=== PATIENT | female | born 1980 | race Caucasian/White ===

== ENCOUNTER 2023-06-22 08:03 | Outpatient (CLI) | payer BC, MEDICAID, SELFPAY ==
--- NOTE | 2023-06-22 08:11 | US_ITS ---
WS: [id number] Complete ABDOMINAL ULTRASOUND HISTORY: HERNIA COMPARISON: 01/01/2013 Liver: 15.2 cm in length. Normal size liver and echogenicity. No bile duct dilatation or mass. Portal Vein: Normal hepatopetal flow with monophasic waveform. Gallbladder: Normally distended gallbladder with no stones or wall thickening. CBD: 0.2 cm Pancreas: Normal size and echogenicity. Right kidney: 9.4 cm x 5.1 x 4.2 cm. Cortex: 1.1 cm. Normal size and echogenicity. No hydronephrosis or mass. Left kidney: 9.2 cm x 3.9 cm x 3.8 cm. Cortex: 1.2 cm. Normal size and echogenicity. No hydronephrosis or mass. Spleen: Normal. Aorta and IVC: Unremarkable abdominal aorta and IVC. No ventral abdominal wall hernia identified. There is a large heterogeneous mass at the level of the umbilicus and just below the umbilicus. This is probably pelvic in etiology. Additional evaluation of the pelvis needs to be obtained. Impression: 1. Negative gallbladder. 2. Negative kidneys. 3. Heterogeneous soft tissue mass noted just below the umbilicus needs to be further evaluated. This is probably uterine or ovarian in etiology. Favor fibroid. Recommend additional ultrasound evaluation of the pelvis. Transabdominal and transvaginal imaging will be necessary.
== END 2023-06-22 08:04 | disposition home or self-care (01) ==
PROVIDERS: Family Provider Nurse Practitioner Family; Visit Provider Nurse Practitioner Family
DX: K46.9 Unspecified abdominal hernia without obstruction or gangrene (principal); R19.05 Periumbilic swelling, mass or lump
CPT/HCPCS: 76700

== ENCOUNTER 2023-07-19 07:47 | Outpatient (CLI) | payer BC, MEDICAID, SELFPAY ==
--- NOTE | 2023-07-19 08:13 | US_ITS ---
WS: [id number] US pelv w/transvag [id number] HISTORY: SOFT TISSUE MASS COMPARISON: None available. Uterus: 14.8 cm x 9.8 cm x 9.1 cm. Appears to be displacing the endometrium. This is probably an intramural fibroid with peripheral incr eased vascularity. This large mass in the central uterus measures 8.2 x 7.9 x 5.9 cm. Endometrium: 0.5 cm. Distorted by the large mass which is probably a fibroid. Endometrium is poorly e valuated due to the distortion and displacement. Right ovary: 2.7 cm x 1.8 cm x 2.9 cm. Normal size and vascularity, no cystic or solid masses. Left ovary: 1.8 cm x 2.1 cm x 1.5 cm. Normal size and vascularity, no cystic or solid masses. No free fluid in the cul-de-sac. IMPRESSION: 1. Large uterine masses most consistent with an intramural fibroid measuring 8.2 x 7.9 x 5.9 cm. 2. Endometrium is being displaced and distorted by the large fibroid.
== END 2023-07-19 07:48 | disposition home or self-care (01) ==
LOC: RAD 07:47
PROVIDERS: Family Provider Nurse Practitioner Family; PCP Nurse Practitioner Family; Visit Provider Nurse Practitioner Family
DX: D25.1 Intramural leiomyoma of uterus (principal); N85.4 Malposition of uterus
CPT/HCPCS: 76830; 76856

== ENCOUNTER 2023-12-10 14:00 | Emergency (ER) | payer BC, MEDICAID, SELFPAY ==
[2023-12-10 14:05] VITALS: BP 136/94; PULSE 110; RESP 17; TEMP 36.8; O2SAT 99; BMI 25.0
[2023-12-10 15:40] VITALS: BP 141/93; PULSE 104; RESP 20; O2SAT 99
--- NOTE | 2023-12-10 15:50 | XRR_ITS ---
PROCEDURE INFORMATION: Exam: XR Chest Exam date and time: 12/10/2023 3:56 PM Age: 43 years old Clinical indication: Chest wall pain; Additional info: Postop, tachycardia, chest pain TECHNIQUE: Imaging protocol: Radiologic exam of the chest. Views: 1 view. COMPARISON: No relevant prior studies available. FINDINGS: Lungs: Unremarkable. No consolidation. Pleural spaces: Unremarkable. No pleural effusion. No pneumothorax. Heart/Mediastinum: Unremarkable. No cardiomegaly. Bones/joints: Unremarkable. XR/XR chest 1V portable [id number] IMPRESSION: No acute findings.
--- NOTE | 2023-12-10 15:50 | CTR_ITS ---
PROCEDURE INFORMATION: Exam: CTA Chest With Contrast Exam date and time: 12/10/2023 4:31 PM Age: 43 years old Clinical indication: Patient HX: Recent hysterectomy, right chest wall pain; Additional info: Postop, tachycardia, chest pain TECHNIQUE: Imaging protocol: Computed tomographic angiography of the chest with contrast. Exam focused on the arteries. 3D rendering (Not supervised by radiologist): MIP and/or 3D reconstructed images were created by the technologist. Radiation optimization: All CT scans at this facility use at least one of these dose optimization techniques: automated exposure control; mA and/or kV adjustment per patient size (includes targeted exams where dose is matched to clinical indication); or iterative reconstruction. Contrast material: OMNI 350; Contrast volume: 60 ml; Contrast route: INTRAVENOUS (IV); COMPARISON: CR (CHEST, ) 12/10/2023 3:56 PM RADIATION DOSE METRICS: Total DLP (mGy-cm): 360.21 FINDINGS: Pulmonary arteries: There is some patchy infiltrate posterior right lower lobe at the base which may represent some pneumonitis and atelectasis related to the patient's pulmonary emboli. Aorta: Unremarkable. No aortic aneurysm. No aortic dissection. Lungs: There is filling defect in the segmental arterial branch and subsegmental branches posterior segment of the right lower lobe which is also the area with the acute pulmonary infiltrate. Findings could portend development of pulmonary infarction in this region, clinical correlation and follow-up suggested. There is also small filling defect in subsegmental branch in the anterior segment of the right lower lobe. On the left there is embolus seen in the segmental arterial branch to the inferior lingular segment. There is calcified granuloma right upper lobe. Pleural spaces: Unremarkable. No pneumothorax. No pleural effusion. Heart: Heart is within normal limits of size. There is no evidence of pericardial fluid collections. Heart RV/LV ratio: 0.88 which is in the normal range. Lymph nodes: There is infrahilar right adenopathy measuring 16 x 20 mm of uncertain significance. Bones/joints: There is no evidence of acute fracture. Soft tissues: Unremarkable. CT/CT angio chest PE protcl [id number] IMPRESSION: 1. Acute pulmonary emboli. 2. Right lower lobe infiltrate worrisome for possible developing pulmonary infarct. Follow-up suggested. COMMENTS: THIS REPORT CONTAINS FINDINGS THAT MAY BE CRITICAL TO PATIENT CARE. The findings were verbally communicated via telephone conference with VICTORINA SCHULTE at 4:54 PM CDT on 12/10/2023. The findings were acknowledged and understood.
[2023-12-10 16:00] VITALS: BP 141/93; PULSE 104; RESP 14; O2SAT 98
[2023-12-10 16:03] LABS: Basophils % 0.4 %; Eosinophils % 0.2 %; Lymphocytes % 12.1 %; Mean Corpuscular HGB Conc 31.1 g/dL (30-55); Mean Corpuscular Hemoglobin 25.7 pg (27-33); Mean Corpuscular Volume 82.6 fl (85-98); Mean Platelet Volume 10.7 fL (7.4-10.4); Monocytes # 0.4 10^3/uL (0.2-0.9); Neutrophils # 6.79 10^3/uL (1.8-7.7); Neutrophils % 81.9 %; Nucleated Red Blood Cells % 0 %; Platelet Count 395 10^3/cmm (157-399); Red Blood Count 4.36 10^6/uL (3.85-5.65); White Blood Count 8.28 10^3/uL (3.29-11.43)
[2023-12-10 16:11] VITALS: RESP 16; O2SAT 98
[2023-12-10] MEDS: HYDROmorphone 1 mg/mL INJ 1 mL IVP (16:11)
[2023-12-10] MEDS: ondansetron 2 mg/ML SDV 2 mL 4 MG IVP (16:11)
[2023-12-10] MEDS: sodium chloride 0.9% 500 ML 999 ML IV (16:13)
[2023-12-10 16:16] LABS: INR 0.99 (0.8-1.2)
--- NOTE | 2023-12-10 16:19 | ECG_ITS ---
[facility] Test Date: 2023-12-10 Pat Name: Jenn Purdy Department: Room: Gender: Female [employer]: : 1980 Requested By: Maribel Frederick Order Number: [id number] Farhat MD: Kurtis Mojica M.D. Measurements Intervals [place] Rate: 97 P: 64 NE: 147 QRS: 59 QRSD: 100 T: 56 QT: 337 QTc: 430 Interpretive Statements SINUS RHYTHM No previous ECG available for comparison Electronically Signed On 12-10-2023 19:56:55 CDT by Kurtis Mojica M.D. [id number]
[2023-12-10 16:21] LABS: Troponin(5th) Baseline 12 ng/L (0-10)
[2023-12-10 16:28] LABS: Alanine Aminotransferase 7 U/L (0-33); Albumin Level 4.4 g/dL (3.5-5.2); Alkaline Phosphatase 87 U/L (35-105); Anion Gap 15.8 (5-19); Aspartate Amino Transferase 13 U/L (0-32); Blood Urea Nitrogen 8 mg/dL (6-20); Calcium 9.1 mg/dL (8.5-10.5); Carbon Dioxide 25 mmol/L (22-29); Chloride 100 mmol/L (98-107); Creatinine Clr Calc Pharmacy 93.0658; Glucose 101 mg/dL (65-115); NT Pro B Type Natriuretic Pept 58 pg/mL (0-125); Osmolality Calculated 282 mOsm/kg (285-295); Potassium 3.8 mmol/L (3.5-5.1); Sodium 137 mmol/L (136-145); Total Bilirubin 0.3 mg/dL (0.15-1.2); Total Protein 7.4 g/dL (6.6-8.7)
[2023-12-10] MEDS: iohexol 350 mg/mL 500 mL Btl (per mL) IV (16:31)
[2023-12-10 17:00] VITALS: BP 135/104; PULSE 91; RESP 16; O2SAT 97
--- NOTE | 2023-12-10 17:28 | ED_ITS ---
HPI - SOB/Dyspnea 2 General: Chief Complaint: Shortness of Breath/Dyspnea Stated Complaint: 2 weeks post hysterectomy, sob, right side pain Time Seen by Provider: 12/10/23 15:31 History of Present Illness: HPI Narrative: Jenn Purdy is a 43-year-old female that presents to the emergency department with right-sided chest wall pain. Onset last night. She reports it was so bad she was unable to sleep. She has trialed taking [id number] medications as well as narcotic prescription provided by her surgeon. She is 2 weeks out from an open hysterectomy. She states that she was doing well up until last night. She describes the pain is sharp in nature. Feels short of breath. She denies any extremity swelling Denies history of VTE Is not anticoagulated Associated symptoms: Reports chest pain and orthopnea; Deny abdominal pain, chest congestion, dizziness, extremity pain, fever(s), nausea, palpitations, polydipsia, polyuria or vomiting Review of Systems 2 General: Reports: 10 or more systems reviewed and unremarkable except in HPI and below Const: Denies: fever(s), chills, change in appetite, change in weight, fatigue or malaise Eyes: Denies: change in vision, eye discomfort, eye discharge or eye redness ENMT: Denies: throat pain, enlarged tonsils, odynophagia, hoarseness, ear or mastoid pain, ear discharge, change in hearing, tinnitus, nasal discharge, nasal congestion, post nasal drip or sinus pain Card: Reports: chest pain, dyspnea on exertion and orthopnea; Denies: palpitations, irregular heart rhythm, edema or leg pain with exertion Resp: Denies: dyspnea, productive cough, non-productive cough, wheezing, stridor or chest congestion GI: Denies: abdominal pain, nausea, vomiting, dysphagia, diarrhea, constipation, bloating, GI cramping or hematochezia : Denies: flank pain, difficulty voiding, dysuria, urinary frequency, urinary urgency, urinary hesitancy, oliguria or hematuria Musc: Denies: neck pain, back pain, extremity pain, joint pain, joint swelling, joint redness, joint warmth or muscle weakness Skin/Breast: Denies: rash, pruritus, erythema, photosensitivity or new lesions Neuro: Denies: headache(s), numbness in extremities, weakness in extremities, sensory changes, lack of coordination, difficulty walking, frequent falls, dizziness, confusion, Slurred speech present, difficulty communicating thoughts, seizure-like activity or involuntary movements Endo: Denies: polyuria, polydipsia or tired all the time Deion/Lymph: Denies: easy bruising or easy bleeding Physical Exam 2 Narrative: EXAM NARRATIVE: Anxious appearing Const: COMMON NORMALS: no acute distress, patient oriented x3 and alert G ENERAL APPEARANCE: cooperative ORIENTATION/CONSCIOUSNESS: Yes awake, Yes oriented to person, Yes oriented to place and Yes oriented to time HENMT: COMMON NORMALS: normocephalic and atraumatic HEAD & SCALP: n ormocephalic and atraumatic FACE & SINUS: normal facial exam MOUTH: Normal oral and palatal mucosa present THROAT: posterior oropharynx normal Eye: COMMON NORMALS: Equal, round and reactive pupils present, EOMs intact bilaterally, conjunctivae normal and no scleral icterus GENERAL EYE: a ppearance normal, both eyes and all related structures ALIGNMENT: Yes alignment normal PERIORBITAL: periorbital findings normal CONJUNCTIVA: Yes conjunctivae normal PUPIL: Yes Equal, round and reactive pupils present Neck/C-Spine: COMMON NORMALS: full ROM GENERAL: Yes normal visual inspection Lymph: LYMPHATIC: no lymphadenopathy noted Chest: COMMONS NORMALS: normal inspection of the chest Breast/axilla inspection: Yes no chest deformity, asymmetry, normal contours, no nodules, masses, tenderness Resp: COMMON NORMALS: normal respiratory effort, No retractions, No use of accessory muscles and clear to auscultation bilaterally EFFORT & INSPECTION: Yes able to speak in complete sentences and Yes symmetric chest movement A USCULTATION: clear to auscultation bilaterally Cardio: COMMON NORMALS: regular rate, regular rhythm and Peripheral pulses 2+ throughout RATE: regular rate RHYTHM: regular rhythm PERIPHERAL PULSES: Peripheral pulses 2+ throughout GI: COMMON NORMALS: Normal to inspection, nondistended, normoactive bowel sounds present, Soft to palpation, non-tender and No hepatosplenomegaly present INSPECTION: Yes normal to inspection AUSCULTATION: Yes normoactive bowel sounds PALPATION: Yes Soft to palpation and Yes No hepatosplenomegaly present RECTAL EXAM: deferred Extremity: COMMON NORMALS: normal to inspection GENERAL: Yes normal exam except as noted Neuro: COMMON NORMALS: patient oriented x3 SENSORIUM/ORIENTATION: Yes alert, Yes oriented to person, Yes oriented to place and Yes oriented to time CRANIAL NERVES: Yes CN normal except as noted Psych: COMMON NORMALS: mental status grossly normal, Normal thought process present, cooperative, activity/motor behavior normal, denies homicidal ideation and denies suicidal ideation THOUGHT PROCESS: Normal thought process present Skin: COMMON NORMALS: no rashes or lesions noted, no wounds and turgor normal GENERAL SKIN EXAM: no rashes or lesions noted and turgor normal Course 2 Vital Signs: Vital signs: Vital Signs Temperature 98.2 F 12/10/23 14:05 Pulse Rate 93 12/10/23 18:06 Respiratory Rate 16 12/10/23 18:06 Blood Pressure 135/104 12/10/23 17:00 Pulse Oximetry 98 12/10/23 18:06 Oxygen Delivery Me thod Room Air 12/10/23 15:40 MDM - SOB/Dyspnea Medical Decision Making Differential diagnosis includes cardiac event, pulmonary embolism, pneumonia, atelectasis, musculoskeletal pain, Patient underwent diagnostic evaluation that included CBC, CMP, troponin and BNP. She also underwent a CTA chest and EKG. EKG revealed sinus rhythm with a ventricular rate of 100 beats a minute. She has peaked T waves Her CTA was completed and revealed a right posterior segment pulmonary embolism with infiltration. Patient was reviewed with Dr. Pham. Dr. Ricardo Carranza discussed findings with patient and her spouse. She was given fluids and pain meds but did not have good results with Dilaudid. We are going to treat her pain, initiate anticoagulation, and arrange follow-up with hematology oncology. Patient has a primary care provider that she is going to follow-up with this week. Lab Data 12/10/23 15:55 12/10/23 15:55 Labs/Radiology: Radiology Impressions Chest CTA 12/10/23 15:50 IMPRESSION: 1. Acute pulmonary emboli. 2. Right lower lobe infiltrate worrisome for possible developing pulmonary infarct. Follow-up suggested. COMMENTS: THIS REPORT CONTAINS FINDINGS THAT MAY BE CRITICAL TO PATIENT CARE. The findings were verbally communicated via telephone conference with VICTORINA SCHULTE at 4:54 PM CDT on 12/10/2023. The findings were acknowledged and understood. Chest X-Ray 12/10/23 15:50 IMPRESSION: No acute findings. Laboratory Results WBC 8.28 10^3/uL (3.29-11.43) 12/10/23 15:55 RBC 4.36 10^6/uL (3.85-5.65) 12/10/23 15:55 Hgb 11.20 g/dL (11.27-16.99) L 12/10/23 15:55 Hct 36.0 % (36-47) 12/10/23 15:55 MCV 82.6 fl (85-98) L 12/10/23 15:55 MCH 25.7 pg (27-33) L 12/10/23 15:55 MCHC 31.1 g/dL (30-55) 12/10/23 15:55 RDW 15.0 % (12.1-15.1) 12/10/23 15:55 Plt Count 395 10^3/cmm (157-399) 12/10/23 15:55 MPV 10.7 fL (7.4-10.4) H 12/10/23 15:55 Neut % (Auto) 81.9 % 12/10/23 15:55 Lymph % (Auto) 12.1 % 12/10/23 15:55 [place] % (Auto) 5.0 % 12/10/23 15:55 Eos % (Auto) 0.2 % 12/10/23 15:55 Baso % (Auto) 0.4 % 12/10/23 15:55 Neut # (Auto) 6.79 10^3/uL (1.8-7.7) 12/10/23 15:55 Lymph # (Auto) 1.0 10^3/uL (0.8-4.8) 12/10/23 15:55 [place] # (Auto) 0.4 10^3/uL (0.2-0.9) 12/10/23 15:55 Eos # (Auto) 0.0 10^3/uL (0.0-0.8) 12/10/23 15:55 Baso # (Auto) 0.0 10^3/uL (0.0-0.1) 12/10/23 15:55 Nucleated RBC % (auto) 0 % 12/10/23 15:55 Nucleated RBCs # 0.0 /100WBC 12/10/23 15:55 PT 13.40 SECONDS (12.1-14.9) 12/10/23 15:55 INR 0.99 (0.8-1.2) 12/10/23 15:55 Sodium 137 mmol/L (136-145) 12/10/23 15:55 Potassium 3.8 mmol/L (3.5-5.1) 12/10/23 15:55 Chloride 100 mmol/L (98-107) 12/10/23 15:55 Carbon Dioxide 25 mmol/L (22-29) 12/10/23 15:55 Anion Gap 15.8 (5-19) 12/10/23 15:55 BUN 8 mg/dL (6-20) 12/10/23 15:55 Creatinine 0.8 mg/dL (0.5-0.9) 12/10/23 15:55 GFR Calculation 79.0 mL/min (90-130) L 12/10/23 15:55 Glucose 101 mg/dL (65-115) 12/10/23 15:55 Calculated Osmolality 282 mOsm/kg (285-295) L 12/10/23 15:55 Calcium 9.1 mg/dL (8.5-10.5) 12/10/23 15:55 Total Bilirubin 0.3 mg/dL (0.15-1.2) 12/10/23 15:55 AST 13 U/L (0-32) 12/10/23 15:55 ALT 7 U/L (0-33) 12/10/23 15:55 Alkaline Phosphatase 87 U/L (35-105) 12/10/23 15:55 Troponin T Baseline 12 ng/L (0-10) H 12/10/23 15:55 NT-Pro-B Natriuret Pep 58 pg/mL (0-125) 12/10/23 15:55 Total Protein 7.4 g/dL (6.6-8.7) 12/10/23 15:55 Albumin 4.4 g/dL (3.5-5.2) 12/10/23 15:55 Globulin 3.0 g/dL (1.3-4.6) 12/10/23 15:55 All radiology interpretation(s) finalized by discharge Discharge Plan Discharge Patient Disposition: Home Clinical Impression: Pulmonary embolism Condition: Stable Prescriptions: New Eliquis DVT-PE Treat 30D Start 5 mg (74 tabs) tablets,dose pack See Rx Instructions .ROUTE .COMPLEX Qty: 74 0RF Rx Instructions: orally per package directions Xarelto DVT-PE Treat 30d Start 15 mg (42)- 20 mg (9) tablets,dose pack See Rx Instructions .ROUTE .COMPLEX Qty: 51 0RF Protocol: Xarelto Dose Pack Condition: Start Dose/Route: 15 mg twice daily Instruction: after 21 days, Condition: Transition to Dose/Route: 20 mg once daily Instruction: thereafter Rx Instructions: take one-15 mg tablet twice daily for 21 days, then one-20 mg tablet once daily; must take with meal/food Medrol (Nish) 4 mg tablets,dose pack See Rx Instructions .ROUTE .COMPLEX Qty: 21 0RF Rx Instructions: for 6 days Discharge Orders: Discharge ED (Routine); Ordered 12/10/23 Ordered By: Victorina Schulte Referrals: Princess Tucker APN [Primary Care Provider] - Shaw,CHET Rutherford [Family Provider] - Discharge Diet: Advance as tolerated Discharge Activity: Resume usual activity Patient Instructions: Pulmonary Embolism (ED), Opioid Safety, Pain Management Activity Restrictions/Additional Instructions: I have provided you with a number of medications. The Medrol Dosepak will help decrease inflammation and hopefully help with pain. I have provided you to blood thinners. You are only to fill 1 prescription. Talk with the pharmacist about which medication is better covered by your insurance. Again, only fill 1 of these blood thinner or anticoagulation prescriptions. If your symptoms worse, if you feel more short of breath, if you feel that your chest pain is getting worse, return to the emergency department. Coding Level of Care Code ED Repair Coil Winder for Tomasa Khoury
[2023-12-10] MEDS: apixaban 5 mg Tablet 10 MG PO (17:38)
[2023-12-10] MEDS: ketorolac 30 mg/mL INJ IVP (17:39)
[2023-12-10] MEDS: dexamethasone 10 mg/mL INJ IVP (17:40)
[2023-12-10] MEDS: enoxaparin 120 mg/0.8 mL Syringe 110 MG SUBCUT (17:42)
--- NOTE | 2023-12-10 17:58 | ECG_ITS ---
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 Measurements Intervals [place] Rate: 78 P: 72 [place]: 166 QRS: 49 QRSD: 103 T: 52 QT: 361 QTc: 411 Interpretive Statements SINUS RHYTHM Compared to ECG 12/10/2023 16:19:40 No significant changes Electronically Signed On 12-10-2023 20:22:09 CDT by Kurtis Mojica M.D. [email or web address] clinic akron generalLoud [place]/store/OM/[id number]
[2023-12-10 18:06] VITALS: PULSE 93; RESP 16; O2SAT 98
[2023-12-14 20:50] LABS: PROTEIN S, ACTIVITY 82 % normal (60-140)
[2023-12-16 11:49] LABS: Protein C Antigen 92 % normal (70-140)
[2023-12-18 17:49] LABS: Factor 5 Leiden Mutation POSITIVE
--- NOTE | 2023-12-29 09:32 | DCPLANNER ---
message sent to onc for er f/u
== END 2023-12-10 18:08 | disposition home or self-care (01) ==
PROVIDERS: Emergency Provider Nurse Practitioner; Family Provider Nurse Practitioner Family; PCP Nurse Practitioner Family
DX: I26.99 Other pulmonary embolism without acute cor pulmonale (principal)
CPT/HCPCS: 71045; 71275; 80053; 81241; 83880; 84484; 85025; 85302; 85306; 85610; 93005; 96361; 96372; 96374; 96375; 99285; J1100; J1170; J1650; J1885; J2405; J7040; Q9967

== ENCOUNTER 2023-12-12 19:45 | Emergency (ER) | payer BC, MEDICAID, SELFPAY ==
--- NOTE | 2023-12-12 19:46 | ECG_ITS ---
[facility] Test Date: 2023-12-12 Pat Name: Jenn Purdy Department: Room: Gender: Female Packer: : 1980 Requested By: Fletcher Larsen Order Number: [id number] Farhat MD: Geoffrey Dior M.D. Measurements Intervals [place] Rate: 62 P: 55 [place]: 166 QRS: 36 QRSD: 103 T: 44 QT: 393 QTc: 400 Interpretive Statements SINUS RHYTHM WITH SINUS ARRHYTHMIA POSSIBLE RIGHT VENTRICULAR CONDUCTION DELAY [RSR (QR) IN V1/V2] Compared to ECG 12/10/2023 17:58:17 No significant changes Electronically Signed On 12-13-2023 17:48:12 CDT by Geoffrey Dior M.D. [email or web address] [email or web address] [email or web address]/store/[id number]
[2023-12-12 19:51] VITALS: BP 151/93; PULSE 82; RESP 15; TEMP 36.6; O2SAT 98
[2023-12-12 19:54] VITALS: BP 143/103; PULSE 74; RESP 16; O2SAT 98
--- NOTE | 2023-12-12 19:56 | USR_ITS ---
PROCEDURE INFORMATION: Exam: US Duplex Left Upper Extremity Veins, Limited Exam date and time: 12/12/2023 8:58 PM Age: 43 years old Clinical indication: Arm, upper; Patient HX: Pulmonary emboli after recent abdominal hysterectomy. No left arm pain. No edema. TECHNIQUE: Imaging protocol: Real-time duplex ultrasound of the left extremity with 2-D whitley scale, color Doppler flow and spectral waveform analysis including responses to compression and other maneuvers (when performed) with image documentation. Limited exam focused on the left upper extremity veins. COMPARISON: CT angio chest PE protcl [id number] 12/10/2023 4:31 PM FINDINGS: Left deep veins: Unremarkable. Axillary and brachial veins are patent throughout without thrombus. Normal Doppler waveforms. Normal compressibility and/or augmentation response. Visualized internal jugular and subclavian veins are patent. Superficial veins: Unremarkable. Visualized cephalic and basilic veins are patent without thrombus. Soft tissues: Unremarkable. US/[place] [id number] IMPRESSION: No evidence of deep vein thrombosis.
--- NOTE | 2023-12-12 20:06 | ED_ITS ---
HPI - Extremity Problem 2 General: Chief complaint: Extremity Problem,Nontraumatic Stated complaint: Possible Blood Clots Time Seen by Provider: 12/12/23 19:57 Source: patient Mode of arrival: ambulatory Limitations: no limitations History of Present Illness: 43-year-old female seen here 2 days ago diagnosed with pulm embolism. She states she started taking Eliquis and her shortness of breath has been much improved she denies any chest pain or shortness of breath states that she had noticed today area of erythema over her left upper arm with some slight swelling to her arm states been warm to touch denies any fever denies any worse improved factors Associated symptoms: Deny chest pain, fever(s) or rash Review of Systems 2 Const: Denies: fever(s), chills, body aches or change in appetite ENMT: Denies: throat pain or dental pain Card: Denies: chest pain Resp: Denies: dyspnea GI: Denies: abdominal pain, nausea, vomiting or diarrhea Musc: Reports: extremity swelling; Denies: neck pain or back pain Skin/Breast: Reports: erythema; Denies: rash Neuro: Denies: headache(s) Physical Exam 2 Const: COMMON NORMALS: no acute distress, patient oriented x3 and healthy appearing HENMT: COMMON NORMALS: normocephalic and atraumatic HEAD & SCALP: n ormocephalic and atraumatic Eye: COMMON NORMALS: conjunctivae normal CONJUNCTIVA: Yes conjunctivae normal Neck/C-Spine: COMMON NORMALS: full ROM and supple Chest: COMMONS NORMALS: normal inspection of the chest Resp: COMMON NORMALS: normal respiratory effort Cardio: COMMON NORMALS: regular rate, regular rhythm and No murmurs present (Cardio) RATE: regular rate RHYTHM: regular rhythm Extremity: COMMON NORMALS: full ROM NARRATIVE EXTREMITY EXAM: Erythema noted over left upper arm is warm to touch Neuro: COMMON NORMALS: patient oriented x3, moves all extremities and no focal motor deficits Psych: COMMON NORMALS: mental status grossly normal, Normal thought process present and cooperative THOUGHT PROCESS: Normal thought process present Skin: COMMON NORMALS: no rashes or lesions noted and no wounds GENERAL SKIN EXAM: no rashes or lesions noted Course 2 Vital Signs: Vital signs: Vital Signs Temperature 97.9 F 12/12/23 19:51 Pulse Rate 71 12/12/23 21:14 Respiratory Rate 19 H 12/12/23 21:14 Blood Pressure 137/104 12/12/23 21:14 Pulse Oximetry 97 12/12/23 21:14 Oxygen Delivery Me thod Room Air 12/12/23 21:14 MDM - Extremity (Nontraumatic) Medical Decision Making Patient presents here with erythema to left upper arm likely localized reaction as the rash she had is resolved now she has no complaints of PE no chest pain no shortness of breath blood work looks normal she stable for discharge she is to continue her Eliquis ultrasound showed no DVT follow-up with PCP return if worsening Medical Records I reviewed the patient's medical records. Lab Data I reviewed the patient's lab results. 12/12/23 20:05 12/12/23 20:05 Laboratory Results WBC 7.48 10^3/uL (3.29-11.43) 12/12/23 20:05 RBC 4.05 10^6/uL (3.85-5.65) 12/12/23 20:05 Hgb 10.70 g/dL (11.27-16.99) L 12/12/23 20:05 Hct 33.4 % (36-47) L 12/12/23 20:05 MCV 82.5 fl (85-98) L 12/12/23 20:05 MCH 26.4 pg (27-33) L 12/12/23 20:05 MCHC 32.0 g/dL (30-55) 12/12/23 20:05 RDW 15.2 % (12.1-15.1) H 12/12/23 20:05 Plt Count 389 10^3/cmm (157-399) 12/12/23 20:05 MPV 10.5 fL (7.4-10.4) H 12/12/23 20:05 Neut % (Auto) 70.7 % 12/12/23 20:05 Lymph % (Auto) 23.5 % 12/12/23 20:05 [place] % (Auto) 4.8 % 12/12/23 20:05 Eos % (Auto) 0.3 % 12/12/23 20:05 Baso % (Auto) 0.3 % 12/12/23 20:05 Neut # (Auto) 5.29 10^3/uL (1.8-7.7) 12/12/23 20:05 Lymph # (Auto) 1.8 10^3/uL (0.8-4.8) 12/12/23 20:05 [place] # (Auto) 0.4 10^3/uL (0.2-0.9) 12/12/23 20:05 Eos # (Auto) 0.0 10^3/uL (0.0-0.8) 12/12/23 20:05 Baso # (Auto) 0.0 10^3/uL (0.0-0.1) 12/12/23 20:05 Nucleated RBC % (auto) 0 % 12/12/23 20:05 Nucleated RBCs # 0.0 /100WBC 12/12/23 20:05 PT 16.50 SECONDS (12.1-14.9) H 12/12/23 20:05 INR 1.29 (0.8-1.2) H 12/12/23 20:05 Sodium 142 mmol/L (136-145) 12/12/23 20:05 Potassium 3.9 mmol/L (3.5-5.1) 12/12/23 20:05 Chloride 104 mmol/L (98-107) 12/12/23 20:05 Carbon Dioxide 26 mmol/L (22-29) 12/12/23 20:05 Anion Gap 15.9 (5-19) 12/12/23 20:05 BUN 14 mg/dL (6-20) 12/12/23 20:05 Creatinine 0.8 mg/dL (0.5-0.9) 12/12/23 20:05 GFR Calculation 79.0 mL/min (90-130) L 12/12/23 20:05 Glucose 98 mg/dL (65-115) 12/12/23 20:05 Calculated Osmolality 294 mOsm/kg (285-295) 12/12/23 20:05 Calcium 8.3 mg/dL (8.5-10.5) L 12/12/23 20:05 Total Bilirubin 0.2 mg/dL (0.15-1.2) 12/12/23 20:05 AST 12 U/L (0-32) 12/12/23 20:05 ALT 9 U/L (0-33) 12/12/23 20:05 Alkaline Phosphatase 82 U/L (35-105) 12/12/23 20:05 Total Protein 7.4 g/dL (6.6-8.7) 12/12/23 20:05 Albumin 4.3 g/dL (3.5-5.2) 12/12/23 20:05 Globulin 3.1 g/dL (1.3-4.6) 12/12/23 20:05 All radiology interpretation(s) finalized by discharge EKG Data EKG 1: I personally reviewed and interpreted this EKG as follows: EKG interpretation date: 12/12/23 EKG interpretation time: 20:08 Interpretation: nsr hr [address] or t wave abnormalities qrs 103 qtc 398 Discharge Plan Discharge Patient Disposition: Home Clinical Impression: Erythema Condition: Stable Prescriptions: No Action Eliquis DVT-PE Treat 30D Start 5 mg (74 tabs) tablets,dose pack See Rx Instructions .ROUTE .COMPLEX Qty: 74 0RF Rx Instructions: orally per package directions Xarelto DVT-PE Treat 30d Start 15 mg (42)- 20 mg (9) tablets,dose pack See Rx Instructions .ROUTE .COMPLEX Qty: 51 0RF Protocol: Xarelto Dose Pack Condition: Start Dose/Route: 15 mg twice daily Instruction: after 21 days, Condition: Transition to Dose/Route: 20 mg once daily Instruction: thereafter Rx Instructions: take one-15 mg tablet twice daily for 21 days, then one-20 mg tablet once daily; must take with meal/food Medrol (Nish) 4 mg tablets,dose pack See Rx Instructions .ROUTE .COMPLEX Qty: 21 0RF Rx Instructions: for 6 days Discharge Orders: Discharge ED (Routine); Ordered 12/12/23 Ordered By: Fletcher Larsen Referrals: Princess Tucker APN [Primary Care Provider] - 1-3 days Discharge Diet: Advance as tolerated Discharge Activity: Resume usual activity Patient Instructions: Acute Rash (ED) Coding Level of Care Code ED Business Process Engineer for Tomasa Khoury
[2023-12-12 20:14] LABS: Basophils % 0.3 %; Eosinophils % 0.3 %; Hematocrit 33.4 % (36-47); Lymphocytes # 1.8 10^3/uL (0.8-4.8); Lymphocytes % 23.5 %; Mean Corpuscular Hemoglobin 26.4 pg (27-33); Mean Corpuscular Volume 82.5 fl (85-98); Mean Platelet Volume 10.5 fL (7.4-10.4); Monocytes # 0.4 10^3/uL (0.2-0.9); Monocytes % 4.8 %; Neutrophils # 5.29 10^3/uL (1.8-7.7); Neutrophils % 70.7 %; Nucleated Red Blood Cells % 0 %; Platelet Count 389 10^3/cmm (157-399); Red Blood Count 4.05 10^6/uL (3.85-5.65); Red Cell Distribution Width 15.2 % (12.1-15.1); White Blood Count 7.48 10^3/uL (3.29-11.43)
[2023-12-12 20:23] LABS: INR 1.29 (0.8-1.2)
[2023-12-12 20:24] VITALS: BP 146/98; PULSE 74; RESP 17; O2SAT 97
[2023-12-12 20:28] LABS: Alanine Aminotransferase 9 U/L (0-33); Albumin Level 4.3 g/dL (3.5-5.2); Alkaline Phosphatase 82 U/L (35-105); Anion Gap 15.9 (5-19); Aspartate Amino Transferase 12 U/L (0-32); Blood Urea Nitrogen 14 mg/dL (6-20); Calcium 8.3 mg/dL (8.5-10.5); Carbon Dioxide 26 mmol/L (22-29); Chloride 104 mmol/L (98-107); Creatinine Clr Calc Pharmacy 93.0658; Globulin 3.1 g/dL (1.3-4.6); Glucose 98 mg/dL (65-115); Osmolality Calculated 294 mOsm/kg (285-295); Potassium 3.9 mmol/L (3.5-5.1); Sodium 142 mmol/L (136-145); Total Bilirubin 0.2 mg/dL (0.15-1.2); Total Protein 7.4 g/dL (6.6-8.7)
[2023-12-12 20:30] VITALS: PULSE 68; O2SAT 96
[2023-12-12 21:14] VITALS: BP 137/104; PULSE 71; RESP 19; O2SAT 97
[2023-12-12 21:54] VITALS: BP 137/104; RESP 65; O2SAT 98
== END 2023-12-12 21:55 | disposition home or self-care (01) ==
PROVIDERS: Emergency Provider Emergency Medicine; PCP Nurse Practitioner Family
DX: L53.9 Erythematous condition, unspecified (principal)
CPT/HCPCS: 80053; 85025; 85610; 93005; 93971; 99285

== ENCOUNTER 2024-01-03 09:17 | Oncology outpatient (recurring) (ONCR) | payer BC, MEDICAID, SELFPAY ==
[2024-01-03 10:52] LABS: Basophils % 0.6 %; Eosinophils # 0.1 10^3/uL (0.0-0.8); Eosinophils % 2.2 %; Hematocrit 36.6 % (36-47); Lymphocytes % 32.8 %; Mean Corpuscular HGB Conc 31.1 g/dL (30-55); Mean Corpuscular Hemoglobin 25.9 pg (27-33); Mean Platelet Volume 10.7 fL (7.4-10.4); Monocytes # 0.2 10^3/uL (0.2-0.9); Monocytes % 6.3 %; Neutrophils # 1.84 10^3/uL (1.8-7.7); Neutrophils % 58.1 %; Nucleated Red Blood Cells % 0 %; Platelet Count 324 10^3/cmm (157-399); Red Blood Count 4.41 10^6/uL (3.85-5.65); Red Cell Distribution Width 15.6 % (12.1-15.1); White Blood Count 3.17 10^3/uL (3.29-11.43)
[2024-01-03 11:09] LABS: INR 1.09 (0.8-1.2)
[2024-01-03 11:23] LABS: Alanine Aminotransferase 8 U/L (0-33); Albumin Level 4.4 g/dL (3.5-5.2); Alkaline Phosphatase 84 U/L (35-105); Anion Gap 12.9 (5-19); Aspartate Amino Transferase 13 U/L (0-32); Blood Urea Nitrogen 10 mg/dL (6-20); Calcium 8.4 mg/dL (8.5-10.5); Carbon Dioxide 27 mmol/L (22-29); Chloride 106 mmol/L (98-107); Ferritin 9 ng/mL (15-150); Glucose 83 mg/dL (65-115); Iron 49 ug/dL (37-145); Osmolality Calculated 292 mOsm/kg (285-295); Percent Saturation 12.6 % (20-50); Potassium 3.9 mmol/L (3.5-5.1); Sodium 142 mmol/L (136-145); Total Bilirubin 0.2 mg/dL (0.15-1.2); Total Iron Binding Capacity 387 mcg/dl; Total Protein 7.4 g/dL (6.6-8.7); Unsaturated Iron Binding 338 ug/dL (112-347)
[2024-01-03 11:36] LABS: Vitamin B12 222 pg/mL (232-1245)
[2024-01-03 14:44] LABS: Folate Level > 20.0 ng/mL (4.8-37.3)
[2024-01-07 10:09] LABS: Methylmalonic Acid 195 nmol/L (87-318)
[2024-01-09 15:15] LABS: PROTHROMBIN (FACTOR II) 20210G NEGATIVE
[2024-01-11 14:43] LABS: Soluble Transferrin Receptor 1.66 mg/L (0.76-1.76)
== END 2024-01-29 23:59 | disposition home or self-care (01) ==
PROVIDERS: Internal Medicine; PCP Nurse Practitioner Family; Visit Provider Internal Medicine Medical Oncology
DX: D68.51 Activated protein C resistance (principal)
CPT/HCPCS: 36415; 80053; 82607; 82728; 82746; 83540; 83550; 83921; 84238; 85025; 85210; 85378; 85610

== ENCOUNTER 2024-04-09 12:25 | Oncology outpatient (recurring) (ONCR) | payer BC, MEDICAID, SELFPAY ==
[2024-04-09 12:44] LABS: Basophils % 0.6 %; Eosinophils # 0.1 10^3/uL (0.0-0.8); Eosinophils % 1.8 %; Hematocrit 39.5 % (36-47); Lymphocytes # 1.4 10^3/uL (0.8-4.8); Lymphocytes % 26.7 %; Mean Corpuscular HGB Conc 32.7 g/dL (30-55); Mean Corpuscular Hemoglobin 27.9 pg (27-33); Mean Corpuscular Volume 85.5 fl (85-98); Mean Platelet Volume 10.4 fL (7.4-10.4); Monocytes # 0.3 10^3/uL (0.2-0.9); Monocytes % 6.7 %; Neutrophils # 3.26 10^3/uL (1.8-7.7); Nucleated Red Blood Cells % 0 %; Platelet Count 290 10^3/cmm (157-399); Red Blood Count 4.62 10^6/uL (3.85-5.65); Red Cell Distribution Width 14.5 % (12.1-15.1); White Blood Count 5.09 10^3/uL (3.29-11.43)
[2024-04-09 13:10] LABS: Ferritin 13 ng/mL (15-150); Iron 67 ug/dL (37-145); Percent Saturation 18.8 % (20-50); Total Iron Binding Capacity 355 mcg/dl; Unsaturated Iron Binding 288 ug/dL (112-347)
[2024-04-09 13:20] LABS: Vitamin B12 215 pg/mL (232-1245)
== END 2024-04-30 23:59 | disposition home or self-care (01) ==
PROVIDERS: Internal Medicine; Nurse Practitioner Family; PCP Nurse Practitioner Family; Visit Provider Internal Medicine Medical Oncology
DX: D68.51 Activated protein C resistance (principal); D64.9 Anemia, unspecified
CPT/HCPCS: 36415; 82607; 82728; 83540; 83550; 85025

== ENCOUNTER 2025-05-06 15:57 | Outpatient (CLI) | payer BC, MEDICAID, SELFPAY ==
--- NOTE | 2025-05-06 16:06 | XRR_ITS ---
PROCEDURE INFORMATION: Exam: XR Left Foot Exam date and time: 05/06/2025 4:11 PM Age: 44 years old Clinical indication: Injury or trauma; Other: Dropped heavy item on foot; Blunt trauma; Injury details: PT states she dropped heavy item on lateral portion of left foot x few days ago. Swelling & bruising since. ; Additional info: Left foot pain TECHNIQUE: Imaging protocol: Radiologic exam of the left foot. Views: 1 or 2 views. COMPARISON: No relevant prior studies available. FINDINGS: Bones/joints: Normal. Soft tissues: Normal. XR/XR foot LT 2V [id number] IMPRESSION: No acute findings.
== END 2025-05-06 15:58 | disposition home or self-care (01) ==
LOC: RAD 16:00
PROVIDERS: PCP Nurse Practitioner Family; Visit Provider Nurse Practitioner Family
DX: M79.672 Pain in left foot (principal); S99.922A Unspecified injury of left foot, initial encounter; W20.8XXA Other cause of strike by thrown, projected or falling object, initial encounter
CPT/HCPCS: 73620